=== PATIENT | male | born 1955 | race Native Hawaiian/Other Pacific Islander ===

== ENCOUNTER 2017-02-03 10:57 | Outpatient (CLI) | payer BC ==
[~2017-02-03 10:57] MED LIST: BENZONATATE200 MG PO; CELEBREX200 MG PO; CETI10TA; DEXILANT60 M1 OR; LEVAQUIN500 MG OR; LISI10TA11 PO; METF500T PO; PLAVIX75 MG PO; ROSU10TA PO; TAMS0.4C PO; TRIM800T12 PO; UROXATRAL10 MG OR; VERAMYST27.5 MCG; XALATAN0.005 % OP; [UNRECOGNIZED DRUG - OTHER] OR
== END 2017-02-03 19:10 | disposition home or self-care (01) ==
LOC: RAD 10:57
DX: M54.5 Low back pain (principal)

== ENCOUNTER 2017-03-06 08:19 | Outpatient (CLI) | payer BC ==
[2017-03-06 08:41] LABS: POTASSIUM 4.1 mmol/L (3.6-5.2); SODIUM 137 mmol/L (136-145)
[2017-03-06 08:44] LABS: PLATELET COUNT 249 K/uL (142-355)
== END 2017-03-06 22:12 | disposition home or self-care (01) ==
LOC: LABW 08:19
PROVIDERS: Internal Medicine Cardiovascular Disease
DX: E78.4 Other hyperlipidemia (principal); Z79.899 Other long term (current) drug therapy; I10 Essential (primary) hypertension; Z51.81 Encounter for therapeutic drug level monitoring
CPT/HCPCS: 36415; 80048; 80061; 80076; 85027

== ENCOUNTER 2017-03-20 15:25 | Outpatient (CLI) | payer BC | END 2017-03-20 23:41 | disposition home or self-care (01) | LOC: MRI 15:25 | DX: M54.42 Lumbago with sciatica, left side (principal) ==

== ENCOUNTER 2017-12-31 09:45 | Outpatient (CLI) | payer BC | END 2017-12-31 19:21 | disposition home or self-care (01) | LOC: RAD 09:45 | DX: M50.90 Cervical disc disorder, unspecified, unspecified cervical region (principal); M25.512 Pain in left shoulder ==

== ENCOUNTER 2018-02-17 09:43 | Outpatient (CLI) | payer BC | END 2018-02-17 23:00 | disposition home or self-care (01) | LOC: MRI 09:43 | DX: M25.512 Pain in left shoulder (principal) ==

== ENCOUNTER 2018-05-13 10:56 | Outpatient (CLI) | payer BC ==
[2018-05-13 11:26] LABS: PLATELET COUNT 281 K/uL (142-355)
[2018-05-13 12:02] LABS: POTASSIUM 4.4 mmol/L (3.6-5.2)
== END 2018-05-13 19:56 | disposition home or self-care (01) ==
LOC: LABW 10:56
PROVIDERS: Internal Medicine Cardiovascular Disease
DX: Z79.899 Other long term (current) drug therapy (principal); E78.2 Mixed hyperlipidemia; R06.02 Shortness of breath; E55.9 Vitamin D deficiency, unspecified
CPT/HCPCS: 36415; 80053; 80061; 82306; 83880; 85027; 86141

== ENCOUNTER 2018-06-07 09:20 | Outpatient (CLI) | payer BC | END 2018-06-07 23:27 | disposition home or self-care (01) | LOC: LABW 09:20 | DX: A09 Infectious gastroenteritis and colitis, unspecified (principal) | CPT/HCPCS: 83630; 87015; 87045; 87324; 87328; 87329; 87449; 87899 ==

== ENCOUNTER 2018-06-25 07:48 | Outpatient (CLI) | payer BC | END 2018-06-25 19:29 | disposition home or self-care (01) | LOC: LABW 07:48 | DX: A09 Infectious gastroenteritis and colitis, unspecified (principal) | CPT/HCPCS: 87507 ==

== ENCOUNTER 2018-11-17 14:42 | Outpatient (CLI) | payer OTHER, BC ==
[2018-11-17 15:08] LABS: PLATELET COUNT 250 K/uL (142-355)
[2018-11-17 15:17] LABS: POTASSIUM 4.2 mmol/L (3.6-5.2)
== END 2018-11-17 20:08 | disposition home or self-care (01) ==
LOC: LABW 14:42
PROVIDERS: Internal Medicine Cardiovascular Disease
DX: Z79.899 Other long term (current) drug therapy (principal); R06.09 Other forms of dyspnea
CPT/HCPCS: 36415; 80053; 80061; 83880; 85027

== ENCOUNTER 2019-02-09 07:36 | Outpatient (CLI) | payer OTHER, BC ==
[2019-02-09 08:04] LABS: PLATELET COUNT 269 K/uL (142-355)
== END 2019-02-09 20:36 | disposition home or self-care (01) ==
LOC: LABW 07:36
PROVIDERS: Internal Medicine
DX: E11.9 Type 2 diabetes mellitus without complications (principal); I25.10 Atherosclerotic heart disease of native coronary artery without angina pectoris; R79.89 Other specified abnormal findings of blood chemistry; E55.9 Vitamin D deficiency, unspecified
CPT/HCPCS: 36415; 80053; 80061; 81000; 82043; 82306; 82570; 83036; 84439; 84443; 85027

== ENCOUNTER 2019-04-23 13:41 | Emergency (ER) | payer OTHER, BC ==
[~2019-04-23] VITALS: Ht 182.9 cm; Wt 100.2 kg
[2019-04-23 14:19] VITALS: TEMP 98.7
[2019-04-23 14:47] LABS: PLATELET COUNT 240 K/uL (142-355)
[2019-04-23 14:58] LABS: POTASSIUM 4.7 mmol/L (3.6-5.2)
[2019-04-23 15:10] LABS: PARTIAL THROMBOPLASTIN TIME 22.3 SECONDS (24.5-33.6)
[2019-04-23 16:55] VITALS: BP 127/63
== END 2019-04-23 17:00 | disposition home or self-care (01) ==
LOC: ED 13:41
PROVIDERS: Hospitalist
PROC: 2W3LX1Z Immobilization of Right Lower Extremity using Splint (ICD-10-PCS; principal; 2019-04-23)
DX: M25.461 Effusion, right knee (principal); R22.41 Localized swelling, mass and lump, right lower limb; R51 Headache; W20.8XXA Other cause of strike by thrown, projected or falling object, initial encounter; Y92.89 Other specified places as the place of occurrence of the external cause
CPT/HCPCS: 36415; 80048; 85027; 85610; 85730; 96374; 96375; 99284; J1885; J2270; J2405

== ENCOUNTER 2019-05-13 09:59 | Outpatient (CLI) | payer OTHER, BC ==
[2019-05-13 10:44] LABS: POTASSIUM 4.5 mmol/L (3.6-5.2)
== END 2019-05-13 22:46 | disposition home or self-care (01) ==
LOC: LAB 09:59
PROVIDERS: Internal Medicine
DX: E11.9 Type 2 diabetes mellitus without complications (principal); E78.2 Mixed hyperlipidemia
CPT/HCPCS: 80053; 80061; 83036

== ENCOUNTER 2020-02-29 08:15 | Outpatient (CLI) | payer OTHER, BC ==
[2020-02-29 08:38] LABS: PLATELET COUNT 238 K/uL (142-355)
[2020-02-29 08:55] LABS: POTASSIUM 4.7 mmol/L (3.6-5.2)
== END 2020-02-29 19:53 | disposition home or self-care (01) ==
LOC: LABW 08:15
PROVIDERS: ATTEND Internal Medicine
DX: E11.9 Type 2 diabetes mellitus without complications (principal)
CPT/HCPCS: 36415; 80053; 80061; 81000; 82043; 82570; 83036; 84439; 84443; 85027

== ENCOUNTER 2020-03-20 09:41 | Outpatient (CLI) | payer BC, OTHER | END 2020-03-20 21:44 | disposition home or self-care (01) | LOC: INF 09:41 | PROVIDERS: ATTEND Internal Medicine Endocrinology, Diabetes & Metabolism | DX: Z23 Encounter for immunization (principal) | CPT/HCPCS: 96372 ==

== ENCOUNTER 2020-04-02 08:10 | Outpatient (CLI) | payer BC | END 2020-04-02 18:56 | disposition home or self-care (01) | LOC: RAD 08:10 | PROVIDERS: ATTEND Physician Assistant | DX: M54.5 Low back pain (principal) ==

== ENCOUNTER 2020-04-17 10:55 | Outpatient (CLI) | payer BC, OTHER | END 2020-04-17 23:00 | disposition home or self-care (01) | LOC: INF 10:55 | PROVIDERS: ATTEND Internal Medicine Endocrinology, Diabetes & Metabolism | DX: Z23 Encounter for immunization (principal) | CPT/HCPCS: 96372 ==

== ENCOUNTER 2020-10-29 13:16 | Outpatient (CLI) | payer BC | END 2020-10-29 21:50 | disposition home or self-care (01) | LOC: RAD 13:16 | PROVIDERS: ATTEND Physician Assistant | DX: M25.511 Pain in right shoulder (principal); M25.512 Pain in left shoulder ==

== ENCOUNTER 2021-02-04 13:32 | Outpatient (CLI) | payer BC ==
[2021-02-04 13:58] LABS: PLATELET COUNT 239 K/uL (142-355)
== END 2021-02-04 21:03 | disposition home or self-care (01) ==
LOC: LAB 13:32
PROVIDERS: ATTEND Internal Medicine
DX: E11.9 Type 2 diabetes mellitus without complications (principal); I25.10 Atherosclerotic heart disease of native coronary artery without angina pectoris
CPT/HCPCS: 80053; 80061; 81000; 82043; 83036; 84439; 84443; 85027

== ENCOUNTER 2021-08-08 12:17 | Outpatient (CLI) | payer BC ==
[2021-08-08 12:24] LABS: PLATELET COUNT 223 K/uL (142-355)
[2021-08-08 14:08] LABS: POTASSIUM 4.4 mmol/L (3.6-5.2); SODIUM 143 mmol/L (136-145)
== END 2021-08-08 18:58 | disposition home or self-care (01) ==
LOC: LAB 12:17
PROVIDERS: ATTEND Internal Medicine
DX: E11.9 Type 2 diabetes mellitus without complications (principal); Z12.5 Encounter for screening for malignant neoplasm of prostate; N40.0 Benign prostatic hyperplasia without lower urinary tract symptoms
CPT/HCPCS: 80053; 80061; 82043; 83036; 84153; 84439; 84443; 85027